=== PATIENT | male | born 1980 | race Caucasian/White ===

== ENCOUNTER 2019-07-27 09:46 | Inpatient (IN) ==
--- NOTE | 2019-07-27 10:05 | PROVIDER DOCUMENTATION ---
HPI-Abdominal Pain/GI Problem - General Stated Complaint: COUGH/ FEVER/ X 1 WEEK Time Seen by Provider: 07/27/19 10:00 Source: patient Allergies/Adverse Reactions: Patient Allergies Allergy/AdvReac Type Severity Reaction Status Date / Time Sulfa (Sulfonamide Allergy ANAPHYLAXIS Verified 07/27/19 10:38 Antibiotics) amoxicillin [From Augmentin] AdvReac NAUSEA/VOMI Verified 07/27/19 10:38 TING aspirin AdvReac NAUSEA Verified 07/27/19 10:38 clavulanic acid AdvReac NAUSEA/VOMI Verified 07/27/19 10:38 [From Augmentin] TING - History of Present Illness-ABD Nature of Presenting Problems: PT c/o "burning" type pain in his abdomen. States that when he has sinusitis it "drain" and then he has n/v. PT has had n/v x2 days. Abdominal Pain Onset Location: reports: epigastric Pain Radiation: reports: no radiation Quality of Pain: reports: burning Severity in ED: reports: moderate Onset/Duration: reports: gradual, last week Timing: reports: still present Activities at Onset: reports: none Exposure to sick contacts?: No Modifying Factors: improves with: eating Associated Symptoms: reports: fatigue, malaise Review of Systems - Adult - REVIEW OF SYSTEMS - ADULT Constitutional: reports: fatique. denies: fever Eyes: reports: no symptoms reported Ears, Nose, Mouth & Throat: reports: no symptoms reported Respiratory: reports: see HPI, cough Gastrointestinal: reports: see HPI, abdominal pain, nausea, vomiting Genitourinary: reports: no symptoms reported Musculoskeletal: reports: no symptoms reported Integumentary: reports: no symptoms reported Neurological: reports: no symptoms reported Psychiatric: reports: no symptoms reported Endocrine: reports: no symptoms reported Hematologic/Lymphatic: reports: no symptoms reported Allergic/Immunologic: reports: no symptoms reported Past History - Adult - PAST MEDICAL HISTORY-ADULT Review of Records: reports: Nursing Assessment Review Physical Exam-General - PHYSICAL EXAM-ADULT Initial Vital Signs Reviewed: Yes - CONSTITUTIONAL General Appearance: alert, mild distress - EYES Eyes: PERRL/EOMI - HEAD, EARS, NOSE, MOUTH & THROAT HENMT: normocephalic/atraumatic, other (dry mucous membrane and lips) - NECK Neck: non-tender, supple - RESPIRATORY Respiratory: lungs clear, normal breath sounds, no pleuratic chest pain - CARDIOVASCULAR Cardiovascular: regular rate, rhythm, tachycardia - GASTROINTESTINAL (ABDOMEN) Abdominal Exam: soft, no pulsatile mass - LYMPHATIC Lymphatic: no adenopathy - MUSCULOSKELETAL Back Exam: no CVA tenderness, no vertebral tenderness Extremity: non-tender, normal gait, normal inspection - SKIN Integumentary: normal turgor, warm/dry - NEUROLOGIC Neurologic: grossly normal, no motor/sensory deficits - PSYCHIATRIC Psych/Mental Status: normal mood/affect Progress - PLAN OF CARE/RESULTS Result Diagrams: 07/27/19 10:25 07/27/19 10:25 - CT/MRI 1 CT Study: Abdomen Impression: See EMR Report (EXAM: CT ABDOMEN/PELVIS W/O CONTRAST 07/27/2019 HISTORY: abdominal pain TECHNIQUE: This exam was performed using automated exposure control, adjustment of mA or kV according to patient size, and/or use of iterative reconstruction technique. COMMENT: There are no previous studies. There is no evidence of acute disease in the visualized portion of the chest. There is no evidence of hydronephrosis or nephrolithiasis. There are no apparent gallstones. The stomach is somewhat distended with fluid and gas with some retained solid material. The adrenal glands are not enlarged. The spleen is not enlarged. The pancreas is unremarkable considering the lack of contrast. There is oral contrast in the colon. The small bowel is not distended. The aorta is not distended. Pelvis: The appendix is normal in appearance. There is stool throughout the rectosigmoid colon. There is no evidence of free fluid or significant adenopathy. There are some calcifications in the prostate gland. The urinary bladder is slightly distended. There is evidence of previous fracture of the inferior pubic ramus on the left. There is no evidence of acute bony a bnormality. IMPRESSION: Gastric distention of uncertain significance. Otherwise no evidence of acute disease. Electronically signed by Ben Curiel 07/27/2019 11:28 AM 07/27/19 1128 Interpreting Physician: Ben Curiel MD Dictated Date/Time: 07/27/19 1125 cc: Keyona Ramirez MD; None,PCP) - CONSULTS/PCP/HOSPITALIST Notification #1 *Consult/PCP/Hospitalist*: BELINDA Gonsalez Time Discussed: 13:05 Consult Disposition: Will see in ED, Admit Departure - Departure Date of Disposition Decision: 07/27/19 Time of Disposition Decision: 13:25 DIAGNOSIS: DKA (diabetic ketoacidoses) Disposition: ADMITTED INPATIENT 09 Certified Medical Emergency: Emergent Condition: Critical Referrals and Follow-Ups: None,PCP [Primary Care Provider] - - Critical Care Note This patient required my direct & personal management of CC.: Yes Total Time (mins): 31 Critical Care Statement: This patient required my direct personal management to treat or rule out processes, the absence of which, could potentiallly result in sudden, clinically significant life or limb threatening deterioration. Attestation - Physician/ SIMONA Attestation Patient care was provided by Advanced Practice Provider:: No The physician spent face to face time with patient:: Yes Advanced Practice Provider documentation review:: Supervising physician onsite and consulted in the evaluation and care of this patient. The physician did have a face to face encounter with the patient.
[2019-07-27] MEDS ORDERED: NS 1,000 ML IV ONE ×3 (10:06→11:52)
[2019-07-27] MEDS ORDERED: G.I. COCKTAIL PO ONE (10:06)
[2019-07-27] MEDS ORDERED: ZOFRAN IV ONE (10:06)
[2019-07-27] MEDS ORDERED: PROTONIX IV ONE (10:06)
[2019-07-27] MEDS ORDERED: SODIUM CHLORIDE 0.9% INJ ONE (10:06)
[2019-07-27 11:21] LABS: ALB/GLOB RATIO 2.4; ALBUMIN 5.5 g/dL (3.5-5.0); CALCIUM 10.8 mg/dL (8.8-10.2); CREATININE 1.4 mg/dL (0.7-1.2); POTASSIUM 3.8 mmol/L (3.5-5.1); TOTAL BILIRUBIN 0.39 mg/dL (0.20-1.00); TOTAL PROTEIN 7.8 g/dL (6.3-8.3)
[2019-07-27 11:23] LABS: BASO# 0.06 X1000 (0.0-0.2); BASO% 0.5 % (0.0-0.8); EOS# 0.03 X1000 (0.0-0.7); EOS% 0.3 % (0.0-10.0); HEMATOCRIT 51.2 % (42.0-52.0); HEMOGLOBIN 18.2 g/dL (14.0-18.0); IMM GRAN% 0.9 % (0.0-0.5); LYMPH# 1.33 X1000 (1.2-3.4); LYMPH% 11.8 % (20.5-51.1); MCH 28.9 PG (27-31); MCHC 35.5 g/dL (33-37); MCV 81.4 FL (81-99); MONO# 0.55 X1000 (0.11-0.59); MONO% 4.9 % (1.7-9.3); MPV 10.9 FL (7.4-10.4); NEUT# 9.17 X1000 (1.4-6.5); NEUT% 81.6 % (42.2-75.2); PLT 388 X1000 (130-400); RBC 6.29 XMIL (4.7-6.1); RDW 13.4 % (11.5-14.5); WBC 11.24 X1000 (4.8-10.8)
--- NOTE | 2019-07-27 11:31 | Diag Imaging Result Doc PS360 ---
EXAM: CT ABDOMEN/PELVIS W/O CONTRAST 07/27/2019 HISTORY: abdominal pain TECHNIQUE: This exam was performed using automated exposure control, adjustment of mA or kV according to patient size, and/or use of iterative reconstruction technique. COMMENT: There are no previous studies. There is no evidence of acute disease in the visualized portion of the chest. There is no evidence of hydronephrosis or nephrolithiasis. There are no apparent gallstones. The stomach is somewhat distended with fluid and gas with some retained solid material. The adrenal glands are not enlarged. The spleen is not enlarged. The pancreas is unremarkable considering the lack of contrast. There is oral contrast in the colon. The small bowel is not distended. The aorta is not distended. Pelvis: The appendix is normal in appearance. There is stool throughout the rectosigmoid colon. There is no evidence of free fluid or significant adenopathy. There are some calcifications in the prostate gland. The urinary bladder is slightly distended. There is evidence of previous fracture of the inferior pubic ramus on the left. There is no evidence of acute bony abnormality. IMPRESSION: Gastric distention of uncertain significance. Otherwise no evidence of acute disease. Electronically signed by Ben Curiel 07/27/2019 11:28 AM
[2019-07-27] MEDS ORDERED: D50W SYRINGE IV PRN (11:33)
[2019-07-27] MEDS ORDERED: HUMULIN R IV ONE (11:33)
[2019-07-27] MEDS ORDERED: HUMULIN R 100 UNIT in NS 100 ML IV SCH ×2 (11:45→12:00)
[2019-07-27 12:04] LABS: MAGNESIUM 1.8 mg/dL (1.5-2.7); PHOSPHORUS 4.2 mg/dL (2.7-4.5)
[2019-07-27 12:13] LABS: BE -24.8 mmoll (-2.0-2.0); BLOOD TYPE VENOUS; HCO3-(ACT) 3.8 mmoll (22-27); PCO2(98.6) 22 mmHg (40-60); PO2(98.6) 25 mmHg (30-55); SAMPLE BLOOD; SAO2 53.7 % (40.0-85.0)
[2019-07-27 12:19] LABS: pH(98.6) 6.99 (7.32-7.43)
[2019-07-27] MEDS ORDERED: SODIUM BICARBONATE 8.4% IV PUSH ONE (12:28)
[2019-07-27] MEDS ORDERED: ZOFRAN IV PRN (12:55)
[2019-07-27] MEDS ORDERED: ROCEPHIN 1 GM in NS 50 ML IV ONE (13:23)
[2019-07-27 13:35] LABS: HEMOGLOBIN A1C 8.5 % (4.8-6.0)
[2019-07-27 13:50] LABS: CHOLESTEROL 376 mg/dL (0-200); HDL 43 mg/dL (35-55); TRIGLYCERIDES 429 mg/dL (39-160)
[2019-07-27 15:00] LABS: URINE SOURCE CLEAN CATCH
[2019-07-27 15:07] LABS: BILIRUBIN URINE NEGATIVE (NEGATIVE); BLOOD URINE SMALL (NEGATIVE); COLOR YELLOW; GLUCOSE URINE >1000 mg/dL (NEGATIVE); KETONE URINE >150 mg/dL (NEGATIVE); LEUKOCYTES URINE NEGATIVE (NEGATIVE); NITRITE URINE NEGATIVE (NEGATIVE); PH URINE 5.5; PROTEIN URINE 100 mg/dL (NEGATIVE); SP GRAVITY URINE 1.024; TURBIDITY URINE CLEAR (CLEAR); UROBILINOGEN URINE NORMAL (NORMAL)
[2019-07-27 15:08] LABS: UR EPITHELIAL CELLS <10 /HPF (<10); URINE BACTERIA NEGATIVE /HPF; URINE RBC <10 /HPF (<10); URINE WBC <10 /HPF (<10)
[2019-07-27 15:32] LABS: ESTIMATED GFR > 60
[2019-07-27 15:41] LABS: AGAP 32; BUN 16 mg/dL (8-22); CHLORIDE 102 mmol/L (98-107); COSMO 295; CREATININE 1.3 mg/dL (0.7-1.2); GLUCOSE 384 mg/dL (70-104); MAGNESIUM 1.8 mg/dL (1.5-2.7); POTASSIUM 3.4 mmol/L (3.5-5.1); SODIUM 139 mmol/L (136-145); TCO2 5 mmol/L (25-35)
[2019-07-27] MEDS ORDERED: MAGNESIUM SULFATE 2 GM/S.W.I. 2 GM/50 ML IVPB IV PRN (16:43)
[2019-07-27] MEDS ORDERED: COMPAZINE IV PRN (16:43)
[2019-07-27] MEDS ORDERED: POTASSIUM CHLORIDE 40 MEQ/SWI 40 MEQ/100 ML IVPB IV PRN (16:43)
[2019-07-27] MEDS ORDERED: SODIUM BICARBONATE 8.4% 100 MEQ in STERILE WATER INJ. 500 ML IV PRN (16:43)
[2019-07-27] MEDS: NS 1,000 ML IV SCH ×2 (17:45→23:41)
[2019-07-27 19:18] LABS: ESTIMATED GFR > 60
[2019-07-27 19:32] LABS: AGAP 27; BUN 15 mg/dL (8-22); CHLORIDE 110 mmol/L (98-107); COSMO 296; CREATININE 1.1 mg/dL (0.7-1.2); GLUCOSE 254 mg/dL (70-104); MAGNESIUM 1.8 mg/dL (1.5-2.7); PHOSPHORUS 1.2 mg/dL (2.7-4.5); POTASSIUM 2.9 mmol/L (3.5-5.1); SODIUM 144 mmol/L (136-145); TCO2 7 mmol/L (25-35)
--- NOTE | 2019-07-27 19:39 | HISTORY AND PHYSICAL ---
CHIEF COMPLAINT: Cough and fever, nausea and vomiting. HISTORY OF PRESENT ILLNESS: This is a 39-year-old gentleman who presented to the emergency room complaining of abdominal pain, epigastric burning, nausea and vomiting times a week. He states that it started as sinus drainage. Soon, the drainage made him nauseated and he would vomit, and he had ended up with the last 48 hours having persistent epigastric burning. He denied any prior episodes. He did state that he felt that he was very thirsty this week and just tired. He denied any black or bloody vomitus or stools. He states he has never been told that he had an elevated blood sugar or he was diabetic. PAST MEDICAL HISTORY: 1. Gastroesophageal reflux disease. 2. Hypertension. 3. Chronic sinusitis. PAST SURGICAL HISTORY: Denies. SOCIAL HISTORY: He denies any alcohol, tobacco, or illicit drug use. ALLERGIES: Sulfa, which causes anaphylaxis. Aspirin and Augmentin cause nausea and vomiting. HOME MEDICATIONS: 1. Atenolol. 2. Trazodone. 3. Hydrochlorothiazide. REVIEW OF SYSTEMS: Discussed with patient with pertinent positives stated in the HPI. He denied any syncope or dizziness, any chest pain or palpitations, any shortness of breath, any black or bloody vomitus or stools, any hematuria or dysuria. PHYSICAL EXAMINATION: GENERAL: This is a 39-year-old gentleman who is lying on the stretcher in the emergency room in no distress. VITAL SIGNS: Blood pressure is 144/89, heart rate of 84, respirations are 18, temperature is 98.2 degrees oral, room air saturations are 98% to 100%. EYES: Pupils equal, round, react to light. EOMs are intact. Sclerae are anicteric. HEENT: Head is normocephalic, atraumatic. Mucous membranes are dry. NECK: Supple with trachea midline. CARDIOVASCULAR: Regular rate and rhythm. He is tachycardic. S1 and S2 are appreciated. No murmur. He denies calf tenderness bilaterally with peripheral pulses palpable x4 extremities. PULMONARY: Breath sounds are clear. No increased work of breathing noted. Chest rises and falls symmetrically with respiration. Chest wall is nontender to palpation. GASTROINTESTINAL: Abdomen is soft, nontender, and nondistended with bowel sounds in all 4 quadrants. GENITOURINARY: No CVA or suprapubic tenderness. NEUROLOGIC: He is alert and oriented. SKIN: Warm and dry. LABS: WBC is 11.2 with hemoglobin 18.2, hematocrit 51.2, and platelets of 388,000. Venous gases: PH is 6.99 with CO2 22, PO2 25, and bicarb of 3.8. Chemistry: Sodium 137, potassium 3.8, BUN 15, creatinine 1.4, CO2 is 4 with anion gap of 35. Blood sugars 393. Lipase is 62. Urinalysis reveals greater than 1000 glucose with greater than 150 ketones and small amount of blood, with less than 10 microscopic white blood cells, red blood cells, and epithelial cells. CT of the abdomen and pelvis revealed gastric distention of uncertain significance. Otherwise, no evidence of acute disease. ASSESSMENT AND PLAN: 1. Diabetic ketoacidosis. 2. Newly diagnosed diabetes mellitus. 3. History of hypertension. 4. History of gastroesophageal reflux disease. 5. Chronic sinusitis. 6. Leukocytosis. 7. Acute kidney injury. PLAN: The patient will be admitted to ICU on diabetic ketoacidosis protocol. Of course, he will be placed on telemetry. We will keep him n.p.o. Monitor labs per diabetic ketoacidosis protocol. For gastrointestinal prophylaxis, we will use Protonix. For deep venous thrombosis prophylaxis, we will use sequential compression devices. Plan was discussed with Dr Beebe Further treatments pending hospital course. Dictated by BELINDA Sosa for John Fong MD Addendum: Patient seen and examined by myself. Agree with BELINDA note. It reflects my assessment and plan. Patient is being admitted to hospital for new onset DM with DKA. Will start insulin drip and send him to ICU. Will monitor patient closely. cc: BELINDA Sosa MD [facility]
[2019-07-27] MEDS: D5 NS + KCL 20 MEQ 1,000 ML IV PRN (20:10)
[2019-07-27] MEDS: POTASSIUM CHLORIDE 20 MEQ/SWI 20 MEQ/100 ML IVPB IV SCH ×2 (21:40→23:35)
[2019-07-27 23:08] LABS: AGAP 18; BUN 15 mg/dL (8-22); CALCIUM 8.6 mg/dL (8.8-10.2); CHLORIDE 113 mmol/L (98-107); COSMO 287; CREATININE 1.2 mg/dL (0.7-1.2); ESTIMATED GFR > 60; GLUCOSE 184 mg/dL (70-104); MAGNESIUM 1.8 mg/dL (1.5-2.7); POTASSIUM 2.7 mmol/L (3.5-5.1); SODIUM 141 mmol/L (136-145); TCO2 10 mmol/L (25-35)
[2019-07-27 23:33] LABS: PHOSPHORUS 0.5 mg/dL (2.7-4.5)
[2019-07-28] MEDS: SODIUM PHOSPHATE 30 MMOL in D5W 250 ML IV PRN ×2 (00:09→12:51)
[2019-07-28 02:44] LABS: ESTIMATED GFR > 60
[2019-07-28 02:56] LABS: AGAP 19; BUN 14 mg/dL (8-22); CALCIUM 8.7 mg/dL (8.8-10.2); CHLORIDE 113 mmol/L (98-107); COSMO 291; CREATININE 1.2 mg/dL (0.7-1.2); GLUCOSE 207 mg/dL (70-104); POTASSIUM 2.8 mmol/L (3.5-5.1); SODIUM 143 mmol/L (136-145); TCO2 11 mmol/L (25-35)
[2019-07-28] MEDS: POTASSIUM CHLORIDE 20% LIQUID PO PRN ×5 (03:13→22:38)
[2019-07-28 04:48] LABS: ALLEN TEST YES; BE -13.3 mmoll (-3.0-3.0); BLOOD TYPE ARTERIAL; HCO3-(ACT) 14.5 mmoll (20.0-26.0); METHB 0.7 % (0.0-1.5); O2(CT) 18.8 mL/dL (15.0-23.0); O2HB 96.6 % (95.0-99.0); PCO2(98.6) 26 mmHg (35-45); PO2(98.6) 121 mmHg (60-100); SAMPLE BLOOD; SAO2 98.2 % (95.0-100.0); THB 13.7 g/dL (11.5-17.4); pH(98.6) 7.27 (7.35-7.45)
[2019-07-28 04:50] LABS: MODALITY ROOM AIR
[2019-07-28] MEDS: NS 1,000 ML IV SCH ×3 (06:44→19:04)
[2019-07-28 06:56] LABS: ESTIMATED GFR > 60
[2019-07-28 07:11] LABS: AGAP 14; BUN 13 mg/dL (8-22); CALCIUM 7.8 mg/dL (8.8-10.2); CHLORIDE 113 mmol/L (98-107); COSMO 286; GLUCOSE 256 mg/dL (70-104); MAGNESIUM 1.8 mg/dL (1.5-2.7); PHOSPHORUS 1.3 mg/dL (2.7-4.5); POTASSIUM 3.1 mmol/L (3.5-5.1); SODIUM 139 mmol/L (136-145); TCO2 12 mmol/L (25-35)
[2019-07-28] MEDS: D5 NS + KCL 20 MEQ 1,000 ML IV PRN ×2 (10:25→19:36)
[2019-07-28 11:34] LABS: AGAP 10; BUN 12 mg/dL (8-22); CALCIUM 8.1 mg/dL (8.8-10.2); CHLORIDE 111 mmol/L (98-107); COSMO 284; CREATININE 0.8 mg/dL (0.7-1.2); ESTIMATED GFR > 60; GLUCOSE 225 mg/dL (70-104); MAGNESIUM 1.8 mg/dL (1.5-2.7); POTASSIUM 2.9 mmol/L (3.5-5.1); SODIUM 139 mmol/L (136-145); TCO2 18 mmol/L (25-35)
[2019-07-28 11:42] LABS: PHOSPHORUS 0.9 mg/dL (2.7-4.5)
[2019-07-28] MEDS: LANTUS INSULIN SUBQ SCH (12:44)
--- NOTE | 2019-07-28 14:41 | PROGRESS NOTE ---
DATE: 07/28/2019 INTERVAL HISTORY: Patient's nausea, vomiting, abdominal pain are largely resolved. Beginning to get some appetite back. No acute events overnight. REVIEW OF SYSTEMS: Twelve-point review of systems negative except as per interval history. LABS: ABG with pH 7.27, pCO2 26, PO2 121 on room air. Sodium 143, potassium 2.9, initial bicarb this morning 11--most recent 18, anion gap this morning 19--most recent 10. Glucose has been 147 to 224. Phosphorus 0.9. A1c 8.5. VITALS: T-max 99.4 degrees, pulse 62, respirations 14, blood pressure 111/73, O2 saturation 100% on room air. PHYSICAL EXAMINATION: General: In no acute distress. Vitals: As above. HEENT: Normocephalic, atraumatic. Still slightly dry mucous membranes. No cervical adenopathy. Cardiovascular: Regular rate and rhythm currently. No murmurs noted. Pulmonary: Clear to auscultation bilaterally. No wheezing, rales, or rhonchi. Abdomen: Soft, nontender, nondistended. Bowel sounds positive. Extremities: Peripheral pulses intact. No clubbing, cyanosis, or edema. Neurologic: Cranial nerves grossly intact. No focal deficits identified. Psychiatric: Normal mood and affect. Awake, asleep, but easily arousable. Oriented x3. ASSESSMENT AND PLAN: 1. Diabetic ketoacidosis, new diagnosis of diabetes. The patient still with anion gap acidosis this morning, but repeat this afternoon appears to have resolved gap and only minimal acidosis. We will go and transition to subcutaneous Lantus and sliding scale insulin. We will advance his diet as tolerated. We will recheck labs after administration of Lantus, and if he continues to do well we will move him to the floor. Anticipate stopping insulin drip 1 hour after Lantus administration. 2. Hypokalemia and hypophosphatemia. We will continue to replete those and monitor labs. 3. Gastroesophageal reflux disease. Continue proton pump inhibitor. 4. Nausea and vomiting, likely secondary to diabetic ketoacidosis, now resolved. 5. Hypertension. Acceptable control currently. 6. Acute kidney injury, resolved with treatment of his diabetic ketoacidosis and dehydration.
[2019-07-28 15:02] LABS: AGAP 9; BUN 11 mg/dL (8-22); CALCIUM 7.8 mg/dL (8.8-10.2); CHLORIDE 110 mmol/L (98-107); COSMO 267; CREATININE 0.9 mg/dL (0.7-1.2); ESTIMATED GFR > 60; GLUCOSE 158 mg/dL (70-104); MAGNESIUM 1.7 mg/dL (1.5-2.7); POTASSIUM 2.8 mmol/L (3.5-5.1); SODIUM 132 mmol/L (136-145); TCO2 13 mmol/L (25-35)
[2019-07-28 15:14] LABS: PHOSPHORUS 0.7 mg/dL (2.7-4.5)
[2019-07-28] MEDS: HUMALOG SUBQ SCH ×2 (15:52→20:41)
[2019-07-28] MEDS: TYLENOL PO PRN (18:15)
[2019-07-28 18:36] LABS: AGAP 13; BUN 8 mg/dL (8-22); CALCIUM 7.5 mg/dL (8.8-10.2); CHLORIDE 109 mmol/L (98-107); COSMO 280; ESTIMATED GFR > 60; GLUCOSE 348 mg/dL (70-104); MAGNESIUM 2.2 mg/dL (1.5-2.7); PHOSPHORUS 1.3 mg/dL (2.7-4.5); POTASSIUM 3.5 mmol/L (3.5-5.1); SODIUM 134 mmol/L (136-145); TCO2 12 mmol/L (25-35)
[2019-07-28] MEDS: POTASSIUM CHLORIDE 10% LIQUID PO PRN (19:37)
[2019-07-28 22:30] LABS: AGAP 14; BUN 6 mg/dL (8-22); CALCIUM 7.6 mg/dL (8.8-10.2); CHLORIDE 107 mmol/L (98-107); COSMO 284; CREATININE 0.7 mg/dL (0.7-1.2); ESTIMATED GFR > 60; GLUCOSE 333 mg/dL (70-104); POTASSIUM 2.9 mmol/L (3.5-5.1); SODIUM 137 mmol/L (136-145); TCO2 16 mmol/L (25-35)
[2019-07-28 22:31] LABS: PHOSPHORUS 0.6 mg/dL (2.7-4.5)
[2019-07-29] MEDS: NS 1,000 ML IV SCH ×2 (01:38→07:55)
[2019-07-29 01:49] LABS: AGAP 12; BUN 5 mg/dL (8-22); CALCIUM 7.4 mg/dL (8.8-10.2); CHLORIDE 109 mmol/L (98-107); COSMO 281; CREATININE 0.6 mg/dL (0.7-1.2); ESTIMATED GFR > 60; GLUCOSE 244 mg/dL (70-104); MAGNESIUM 1.9 mg/dL (1.5-2.7); PHOSPHORUS 1.2 mg/dL (2.7-4.5); POTASSIUM 2.9 mmol/L (3.5-5.1); SODIUM 138 mmol/L (136-145); TCO2 17 mmol/L (25-35)
[2019-07-29] MEDS: POTASSIUM CHLORIDE 20% LIQUID PO PRN ×3 (01:56→20:29)
[2019-07-29] MEDS: TYLENOL PO PRN ×2 (04:38→15:57)
[2019-07-29 05:54] LABS: AGAP 13; BUN 4 mg/dL (8-22); CALCIUM 7.6 mg/dL (8.8-10.2); CHLORIDE 104 mmol/L (98-107); COSMO 277; CREATININE 0.7 mg/dL (0.7-1.2); ESTIMATED GFR > 60; GLUCOSE 275 mg/dL (70-104); MAGNESIUM 1.8 mg/dL (1.5-2.7); PHOSPHORUS 2.3 mg/dL (2.7-4.5); POTASSIUM 3.2 mmol/L (3.5-5.1); SODIUM 135 mmol/L (136-145); TCO2 18 mmol/L (25-35)
[2019-07-29] MEDS: HUMALOG SUBQ SCH ×4 (06:03→20:08)
[2019-07-29] MEDS: POTASSIUM CHLORIDE 10% LIQUID PO PRN (06:16)
[2019-07-29] MEDS: LANTUS INSULIN SUBQ SCH (08:07)
[2019-07-29] MEDS: D5 NS + KCL 20 MEQ 1,000 ML IV PRN (08:08)
[2019-07-29] MEDS ORDERED: TUMS PO PRN (09:45)
[2019-07-29 13:12] LABS: AGAP 11; ALBUMIN 3.8 g/dL (3.5-5.0); BUN 3 mg/dL (8-22); CHLORIDE 100 mmol/L (98-107); COSMO 269; CREATININE 0.7 mg/dL (0.7-1.2); ESTIMATED GFR > 60; GLUCOSE 239 mg/dL (70-104); PHOSPHORUS 1.3 mg/dL (2.7-4.5); POTASSIUM 3.1 mmol/L (3.5-5.1); SODIUM 132 mmol/L (136-145); TCO2 21 mmol/L (25-35)
--- NOTE | 2019-07-29 14:58 | PROGRESS NOTE ---
DATE: 07/29/2019 INTERVAL HISTORY: The patient remains largely asymptomatic. Gap remains closed at this time. We gave him large amounts of potassium and phosphorus. No acute events overnight. No new complaints. REVIEW OF SYSTEMS: Twelve point review of systems negative except as per interval history. LABORATORY DATA: Sodium 132, potassium 3.1, phosphorus 1.3, bicarb 21, anion gap 11. VITAL SIGNS: T-max 99.0 degrees, pulse 90, respirations 16, blood pressure 134/89, O2 saturation is 100% on room air. PHYSICAL EXAMINATION: General: No acute distress. Vitals: As above. HEENT: Normocephalic, atraumatic. Moist mucous membranes. No cervical adenopathy. Cardiovascular: Regular rate and rhythm. No murmurs noted. Pulmonary: Clear to auscultation bilaterally. No wheezing, rales, or rhonchi. Abdomen: Soft, nontender, nondistended. Bowel sounds positive. Extremities: Peripheral pulses intact. No clubbing, cyanosis, or edema. Neurologic: Cranial nerves grossly intact. No focal deficits identified. Psychiatric: Normal mood and affect. Awake, alert, and oriented x3. ASSESSMENT AND PLAN: 1. Diabetic ketoacidosis, new diagnosis of diabetes mellitus. Anion gap closed and bicarb much improved. Transitioned to basal insulin yesterday. Glucose control not quite ideal but he is still currently on D5, so we will stop that and see how he does. Continue sliding scale and monitor. 2. Hypokalemia and hypophosphatemia. The potassium is starting to improve but phosphorus still remains quite low. We will continue to replete those and monitor labs and replete aggressively. 3. Gastroesophageal reflux disease. Continue proton pump inhibitor. 4. Nausea and vomiting, now resolved. 5. Hypertension. Acceptable control currently. Monitor. 6. Acute kidney injury, resolved with treatment of his diabetic ketoacidosis and dehydration.
[2019-07-29 19:49] LABS: AGAP 11; ALBUMIN 3.6 g/dL (3.5-5.0); BUN 4 mg/dL (8-22); CALCIUM 8.3 mg/dL (8.8-10.2); CHLORIDE 99 mmol/L (98-107); COSMO 277; CREATININE 0.8 mg/dL (0.7-1.2); ESTIMATED GFR > 60; GLUCOSE 310 mg/dL (70-104); PHOSPHORUS 1.5 mg/dL (2.7-4.5); POTASSIUM 3.2 mmol/L (3.5-5.1); SODIUM 134 mmol/L (136-145); TCO2 24 mmol/L (25-35)
[2019-07-30] MEDS: HUMALOG SUBQ SCH ×2 (06:30→11:34)
[2019-07-30 07:10] LABS: AGAP 13; ALBUMIN 3.5 g/dL (3.5-5.0); BUN 4 mg/dL (8-22); CALCIUM 8.7 mg/dL (8.8-10.2); CHLORIDE 101 mmol/L (98-107); COSMO 278; CREATININE 0.5 mg/dL (0.7-1.2); ESTIMATED GFR > 60; GLUCOSE 233 mg/dL (70-104); POTASSIUM 3.1 mmol/L (3.5-5.1); SODIUM 137 mmol/L (136-145); TCO2 23 mmol/L (25-35)
[2019-07-30] MEDS ORDERED: POTASSIUM PHOSPHATE 30 MMOL in NS 250 ML IV ONE (07:38)
[2019-07-30] MEDS: LANTUS INSULIN SUBQ SCH (08:33)
[2019-07-30] MEDS: TYLENOL PO PRN (09:11)
[2019-07-30 13:45] LABS: AGAP 15; ALBUMIN 3.8 g/dL (3.5-5.0); BUN 6 mg/dL (8-22); CALCIUM 8.7 mg/dL (8.8-10.2); CHLORIDE 95 mmol/L (98-107); COSMO 273; CREATININE 0.7 mg/dL (0.7-1.2); ESTIMATED GFR > 60; GLUCOSE 269 mg/dL (70-104); PHOSPHORUS 2.9 mg/dL (2.7-4.5); POTASSIUM 3.8 mmol/L (3.5-5.1); SODIUM 133 mmol/L (136-145); TCO2 23 mmol/L (25-35)
[2019-07-30 16:23] VITALS: BP 134/100
== END 2019-07-30 16:15 | disposition home or self-care (01) | DRG 638 ==
LOC: SUPCPDRO → ED 09:46 → SUATTDRO 13:58 → ICU 13:58
PROVIDERS: ATTEND Internal Medicine